=== PATIENT | female | born 1990 | race Caucasian/White ===

== ENCOUNTER 2019-01-28 09:44 | Inpatient (IN) | payer BC, OTHER ==
[~2019-01-28] VITALS: Ht 152.4 cm; Wt 90.0 kg
[~2019-01-28 09:44] MED LIST: IBUP-1222 PO; OXYC-302 PO
[2019-01-28] MEDS ORDERED: OXYTOCIN 30U/ 0.9% NaCL 500ML 500 ML IV ONE (10:11)
[2019-01-28] MEDS ORDERED: OXYTOCIN 30U/ 0.9% NaCL 500ML 500 ML ONE ×2 (10:16→20:43)
[2019-01-28] MEDS ORDERED: NEWBORN KIT ONE (10:16)
[2019-01-28] MEDS ORDERED: LIDOCAINE 1%, 20ML ONE (10:16)
[2019-01-28] MEDS ORDERED: MISOPROSTOL 200 MCG TABLET ONE (10:16)
[2019-01-28] MEDS: LACTATED RINGERS 1,000 ML IVBOLUS PRN ×3 (10:24→18:00)
[2019-01-28] MEDS ORDERED: FENTANYL PF 100 MCG/2ML IV PRN (10:30)
[2019-01-28] MEDS ORDERED: FENTANYL PF 100 MCG/2ML IVPush PRN (10:30)
[2019-01-28 10:32] VITALS: BP 125/79
[2019-01-28] MEDS ORDERED: FENTANYL/BUPIV./NS/PF 250 ML EPIDCONT SCH ×2 (10:40→11:50)
[2019-01-28] MEDS ORDERED: FENTANYL PF 500 MCG, BUPIVACAINE/PF 0.5%, 30ML 62.5 ML in SODIUM CHLORIDE 0.9% 177.5 ML EPIDCONT SCH (11:00)
[2019-01-28 11:18] LABS: BASOPHILS # (AUTO) 0.04 x10^3/uL (0-0.1); BASOPHILS % (AUTO) 0 % (0-1); EOSINOPHILS # (AUTO) 0.04 x10^3/uL (0-0.4); EOSINOPHILS % (AUTO) 0 % (1-7); LYMPHOCYTES # (AUTO) 2.12 x10^3/uL (1-3.4); LYMPHOCYTES % (AUTO) 17 % (22-44); MD NO; MEAN CORPUSCULAR HEMOGLOBIN 27.8 pg (27.0-34.8); MEAN CORPUSCULAR HGB CONC 32.6 g/dL (32.4-35.8); MEAN CORPUSCULAR VOLUME 85.3 fL (80-100); MEAN PLATELET VOLUME 9.9 fL (7.4-10.4); MONOCYTES # (AUTO) 0.65 x10^3/uL (0.2-0.8); MONOCYTES % (AUTO) 5 % (2-9); NEUTROPHILS # (AUTO) 9.51 x10^3/uL (1.8-6.8); NEUTROPHILS % (AUTO) 77 % (42-75); PLATELET COUNT 234 x10^3/uL (130-400); RED CELL DISTRIBUTION WIDTH 14.7 % (9.6-15.2)
[2019-01-28] MEDS ORDERED: BUPIVACAINE 0.25% ONE (11:26)
[2019-01-28] MEDS ORDERED: LIDOCAINE/PF 1.5%-EPI 1:200K, 30ML ONE (11:28)
[2019-01-28 11:29] LABS: AMPHETAMINE SCREEN, URINE Negative (Negative); BARBITURATE SCREEN, URINE Negative (Negative); BENZODIAZEPINE SCREEN, URINE Negative (Negative); CANNABINOID SCREEN, URINE Positive (Negative); COCAINE SCREEN, URINE Negative (Negative); METHADONE SCREEN, URINE Negative (Negative); OPIATE SCREEN, URINE Negative (Negative)
[2019-01-28] MEDS: LACTATED RINGERS 1,000 ML IV SCH ×4 (11:50→19:50)
[2019-01-28] MEDS ORDERED: ONDANSETRON 2MG/ML, 2ML IVPush PRN (12:00)
[2019-01-28] MEDS ORDERED: DIPHENHYDRAMINE 50 MG/ML, 1ML IVPush PRN (12:00)
[2019-01-28] MEDS ORDERED: EPHEDRINE 50 MG/ML, 1ML IVPush PRN (12:00)
[2019-01-28] MEDS ORDERED: NALOXONE 0.4 MG/ML, 1ML IVPush PRN (12:00)
[2019-01-28] MEDS: IBUPROFEN 600 MG TABLET PO PRN (20:40)
[2019-01-28] MEDS: OXYTOCIN 30U/ 0.9% NaCL 500ML 500 ML IV SCH (20:40)
[2019-01-28] MEDS ORDERED: IBUPROFEN 600 MG TABLET ONE (20:47)
[2019-01-28] MEDS ORDERED: ACETAMINOPHEN 325 MG TABLET PO PRN (21:00)
[2019-01-28] MEDS ORDERED: MISOPROSTOL 200 MCG TABLET PR PRN (21:00)
[2019-01-28] MEDS ORDERED: METHYLERGONOVINE 0.2 MG/ML IM PRN (21:00)
[2019-01-28] MEDS ORDERED: OXYcodone/APAP 5/325MG TABLET PO PRN (21:00)
[2019-01-28] MEDS ORDERED: ONDANSETRON 2MG/ML, 2ML IV PRN (21:00)
[2019-01-28 22:30] VITALS: BP 115/73
[2019-01-29 04:00] VITALS: BP 134/87
[2019-01-29] MEDS: IBUPROFEN 600 MG TABLET PO PRN ×3 (04:13→20:34)
[2019-01-29 06:23] LABS: MEAN CORPUSCULAR HEMOGLOBIN 27.8 pg (27.0-34.8); MEAN CORPUSCULAR HGB CONC 32.4 g/dL (32.4-35.8); MEAN CORPUSCULAR VOLUME 85.7 fL (80-100); PLATELET COUNT 213 x10^3/uL (130-400); RED BLOOD COUNT 3.08 x10^6/uL (3.82-5.3); RED CELL DISTRIBUTION WIDTH 14.9 % (9.6-15.2)
[2019-01-29 06:42] LABS: MD YES
[2019-01-29 06:44] LABS: BANDS%(MANUAL) 6 % (0-7); EOS% (MANUAL) 1 % (1-7); LYMPHS% (MANUAL) 8 % (22-44); MONOS% (MANUAL) 5 % (2-9); SEGS% (MANUAL) 80 % (42-75)
[2019-01-29] MEDS: OXYTOCIN 30U/ 0.9% NaCL 500ML 500 ML IV SCH ×2 (06:46→16:53)
[2019-01-29 06:49] LABS: POLYCHROMASIA 1+
[2019-01-29 06:50] LABS: <PLATELET ESTIMATE> ADEQUATE; <PLT MORPHOLOGY> NORMAL PLT MORPH
[2019-01-29 07:40] VITALS: BP 104/72
[2019-01-29] MEDS: DOCUSATE 100 MG CAPSULE PO PRN ×2 (08:02→20:34)
[2019-01-29] MEDS: PRENATAL VIT/IRON/FA 1 EACH TABLET PO SCH (08:02)
[2019-01-29] MEDS: OXYcodone/APAP 5/325MG TABLET PO PRN (08:05)
[2019-01-29 11:59] VITALS: BP 104/70
[2019-01-29 20:00] VITALS: BP 111/73
[2019-01-29] MEDS ORDERED: MEASLES,MUMPS&RUBELLA VACC/PF 0.5 ML SQ-VACC ONE (21:00)
[2019-01-30] MEDS: OXYcodone/APAP 5/325MG TABLET PO PRN (00:57)
[2019-01-30] MEDS: OXYTOCIN 30U/ 0.9% NaCL 500ML 500 ML IV SCH (02:53)
[2019-01-30] MEDS: PRENATAL VIT/IRON/FA 1 EACH TABLET PO SCH (07:32)
[2019-01-30] MEDS: IBUPROFEN 600 MG TABLET PO PRN (07:32)
[2019-01-30] MEDS: DOCUSATE 100 MG CAPSULE PO PRN (07:32)
[2019-01-30 07:59] VITALS: BP 103/70
[2019-01-30] MEDS ORDERED: FERROUS GLUCONATE 324 MG TABLET PO SCH (08:00)
[2019-01-30] MEDS ORDERED: IBUP-1222 PO (08:27)
[2019-01-30] MEDS ORDERED: FERR324T18 PO (08:30)
[2019-01-30] MEDS ORDERED: DOCU-131 PO (08:33)
[2019-01-30] MEDS ORDERED: LIDOCAINE-MPF 1%, 2ML INFIL ONE (09:00)
== END 2019-01-30 12:20 | disposition home or self-care (01) | DRG 806 ==
LOC: LDOP 09:44 → LDIP 10:11 → 2NW 22:31
PROVIDERS: ADMIT Obstetrics & Gynecology; ATTEND Obstetrics & Gynecology
PROC: 10E0XZZ Delivery of Products of Conception, External Approach (ICD-10-PCS; principal; 2019-01-28)
PROC: 0KQM0ZZ Repair Perineum Muscle, Open Approach (ICD-10-PCS; 2019-01-28)
PROC: 10H07YZ Insertion of Other Device into Products of Conception, Via Natural or Artificial Opening (ICD-10-PCS; 2019-01-28)
PROC: 3E0R3BZ Introduction of Anesthetic Agent into Spinal Canal, Percutaneous Approach (ICD-10-PCS; 2019-01-28)
PROC: 00HU33Z Insertion of Infusion Device into Spinal Canal, Percutaneous Approach (ICD-10-PCS; 2019-01-28)
PROC: 0UQMXZZ Repair Vulva, External Approach (ICD-10-PCS; 2019-01-28)
DX: O76 Abnormality in fetal heart rate and rhythm complicating labor and delivery (principal); O99.324 Drug use complicating childbirth; Z37.0 Single live birth; D62 Acute posthemorrhagic anemia; O34.219 Maternal care for unspecified type scar from previous cesarean delivery; F32.9 Major depressive disorder, single episode, unspecified; O99.344 Other mental disorders complicating childbirth; F12.90 Cannabis use, unspecified, uncomplicated; O70.1 Second degree perineal laceration during delivery; Z3A.40 40 weeks gestation of pregnancy; O99.03 Anemia complicating the puerperium
CPT/HCPCS: 36415; J3490; S0020; 80307; 85025; 86850; 86900; G0378; J3010; J2590; J7050; J7120

== ENCOUNTER 2019-02-04 17:41 | Emergency (ER) | payer OTHER ==
[~2019-02-04] VITALS: Ht 152.4 cm; Wt 81.1 kg
[~2019-02-04 17:41] MED LIST changes: +DOCU-131 PO; +FERR324T18 PO
[2019-02-04] MEDS ORDERED: ACETAMINOPHEN 500 MG TABLET ONE (18:44)
[2019-02-04] MEDS ORDERED: SODIUM CHLORIDE FLUSH 10ML SYR IVF ONE (19:00)
[2019-02-04] MEDS ORDERED: ACETAMINOPHEN 500 MG TABLET PO ONE ×2 (19:00)
--- NOTE | 2019-02-04 19:18 | NUR ---
PT IN ROOM IN GOWN. VERBAL ORDER FOR TYLENOL RECIEVED AND COMPLETED. EDTA TO START IV AND GET BLOOD CULTURE/ LABS. PT TOLERATING PO FLUIDS FOR MEDICATIONS. AWAITING FURTHER ORDERS.
[2019-02-04 19:38] LABS: MEAN CORPUSCULAR HEMOGLOBIN 27.2 pg (27.0-34.8); MEAN CORPUSCULAR HGB CONC 32.1 g/dL (32.4-35.8); MEAN CORPUSCULAR VOLUME 84.6 fL (80-100); MEAN PLATELET VOLUME 8.4 fL (7.4-10.4); PLATELET COUNT 340 x10^3/uL (130-400); RED CELL DISTRIBUTION WIDTH 15.6 % (9.6-15.2)
[2019-02-04 19:40] LABS: ALANINE AMINOTRANSFERASE 25 U/L (12-78); ALBUMIN 2.4 g/dL (3.4-5.0); ANION GAP 9 mmol/L (5-15); CALCIUM 8.2 mg/dL (8.5-10.1); CHLORIDE 109 mmol/L (98-107); CREATININE 0.57 mg/dL (0.55-1.02)
[2019-02-04 19:42] LABS: ALKALINE PHOSPHATASE 124 U/L (45-117); BILIRUBIN,TOTAL 0.5 mg/dL (0.2-1.0)
[2019-02-04 20:08] LABS: MD YES
[2019-02-04 20:13] LABS: BAND#(MANUAL) 1.18 x10^3/uL; BANDS%(MANUAL) 8 % (0-7); LYMPH#(MANUAL) 0.74 x10^3/uL (1-3.4); LYMPHS% (MANUAL) 5 % (22-44); MONOS#(MANUAL) 0.74 x10^3/uL (0.3-2.7); MONOS% (MANUAL) 5 % (2-9); SEG#(MANUAL) 12.05 x10^3/uL (1.8-6.8); SEGS% (MANUAL) 82 % (42-75)
[2019-02-04 20:14] LABS: <PLATELET ESTIMATE> ADEQUATE; <PLT MORPHOLOGY> NORMAL PLT MORPH; ANISOCYTOSIS 1+; POLYCHROMASIA 1+
[2019-02-04 20:24] LABS: CULTURE INDICATED? YES; MICROSCOPIC INDICATED
--- NOTE | 2019-02-04 20:37 | NUR ---
PT BACK FROM CT. PT STATES SHE IS FEELING BETTER AT THIS TIME.
[2019-02-04] MEDS ORDERED: OMNIPAQUE 350 MG/ML, 100ML BOTTLE ONE (20:38)
[2019-02-04] MEDS ORDERED: CEFTRIAXONE PMX 1GM/50ML 50 ML ONE (21:12)
--- NOTE | 2019-02-04 21:29 | NUR ---
ASSUMED CARE OF PATIENT. REPORT GIVEN FROM STEWART BUCHANAN
[2019-02-04] MEDS ORDERED: CEFTRIAXONE PMX 1GM/50ML 50 ML IVPB ONE (21:30)
--- NOTE | 2019-02-04 21:40 | NUR ---
DR FERRARO HAS UPDATED PATIENT
[2019-02-04 21:50] VITALS: BP 105/60
== END 2019-02-04 21:54 | disposition home or self-care (01) ==
LOC: ED 20:38
DX: N30.00 Acute cystitis without hematuria (principal); R50.9 Fever, unspecified; R00.0 Tachycardia, unspecified
CPT/HCPCS: 36415; 74177; 80053; 81001; 83605; 85025; 87040; 87086; 96365; 99284; J0696; Q9967; 87077

== ENCOUNTER 2019-02-06 11:00 | Emergency (ER) | payer OTHER ==
[~2019-02-06] VITALS: Ht 152.4 cm; Wt 80.0 kg
[2019-02-06] MEDS ORDERED: CEFTRIAXONE PMX 1GM/50ML 50 ML IVPB ONE (11:30)
[2019-02-06] MEDS ORDERED: CEFTRIAXONE PMX 1GM/50ML 50 ML ONE (11:50)
[2019-02-06 12:44] LABS: CULTURE INDICATED? YES; MICROSCOPIC INDICATED
--- NOTE | 2019-02-06 12:50 | NUR ---
ZACKARY RN: AWAITING UA RESULTS AT THIS TIME AND RECHECK FOR DC.
[2019-02-06 13:20] VITALS: BP 122/84
--- NOTE | 2019-02-06 13:24 | NUR ---
Patient/Caregiver given discharge instructions and they have confirmed that they understand the instructions. Patient ambulatory with steady gait.
== END 2019-02-06 13:24 | disposition home or self-care (01) ==
LOC: ED 11:25
DX: R78.81 Bacteremia (principal); N39.0 Urinary tract infection, site not specified
CPT/HCPCS: 36415; 81001; 87040; 87086; 96365; 99283; J0696

== ENCOUNTER 2019-02-08 23:01 | Inpatient (IN) | payer OTHER ==
[~2019-02-08] VITALS: Ht 152.4 cm; Wt 93.0 kg
[2019-02-08] MEDS ORDERED: VANCOMYCIN 1,600 MG in SODIUM CHLORIDE 0.9% 250 ML IV ONE (23:45)
[2019-02-09] MEDS ORDERED: SODIUM CHLORIDE 0.9% 1,000ML IVBOLUS ONE ×2
[2019-02-09] MEDS ORDERED: PIPERACILLIN/TAZO/PMX 4.5GM 100 ML IVPB ONE
[2019-02-09] MEDS ORDERED: VANCOMYCIN PER PHARMACY MC ONE
[2019-02-09 00:08] LABS: ALBUMIN 2.6 g/dL (3.4-5.0); ANION GAP 10 mmol/L (5-15); CALCIUM 8.6 mg/dL (8.5-10.1); CHLORIDE 108 mmol/L (98-107); CREATININE 0.86 mg/dL (0.55-1.02)
[2019-02-09 00:12] LABS: TROPONIN I < 0.015 ng/mL (0.000-0.045)
[2019-02-09 00:13] LABS: BASOPHILS # (AUTO) 0.01 x10^3/uL (0-0.1); BASOPHILS % (AUTO) 0 % (0-1); EOSINOPHILS # (AUTO) 0.02 x10^3/uL (0-0.4); EOSINOPHILS % (AUTO) 0 % (1-7); LYMPHOCYTES % (AUTO) 20 % (22-44); MD NO; MEAN CORPUSCULAR HEMOGLOBIN 26.4 pg (27.0-34.8); MEAN CORPUSCULAR HGB CONC 31.3 g/dL (32.4-35.8); MEAN CORPUSCULAR VOLUME 84.3 fL (80-100); MEAN PLATELET VOLUME 7.9 fL (7.4-10.4); MONOCYTES % (AUTO) 0 % (2-9); NEUTROPHILS # (AUTO) 3.57 x10^3/uL (1.8-6.8); NEUTROPHILS % (AUTO) 79 % (42-75); PLATELET COUNT 406 x10^3/uL (130-400); RED BLOOD COUNT 4.06 x10^6/uL (3.82-5.3); RED CELL DISTRIBUTION WIDTH 16.3 % (9.6-15.2)
--- NOTE | 2019-02-09 00:13 | NUR ---
FIRST SET OF BLOOD CULTURES DRAWN WITH IV START. 2ND SET DRAWN BY LAB.
--- NOTE | 2019-02-09 00:18 | NUR ---
CALLED PHARMACY TO ENSURE ORDERED ABX ARE SAFE FOR MOTHER. PER PHARMISIST THEY ARE BOTH PRESENT IN BREAST MILK BUT SAFE FOR MOTHERS. MOTHER WILL NEED TO OBSERVE CHILD FOR GI SYMPTOMS SUCH DIARRHEA.
[2019-02-09 00:29] LABS: ALANINE AMINOTRANSFERASE 19 U/L (12-78)
--- NOTE | 2019-02-09 00:29 | NUR ---
PT. OUT OF ROOM FOR CT.
[2019-02-09 00:31] LABS: ALKALINE PHOSPHATASE 126 U/L (45-117); BILIRUBIN,TOTAL 0.2 mg/dL (0.2-1.0); TOTAL PROTEIN 6.9 g/dL (6.4-8.2)
[2019-02-09] MEDS ORDERED: OMNIPAQUE 350 MG/ML, 100ML BOTTLE ONE (00:36)
[2019-02-09] MEDS ORDERED: ACETAMINOPHEN 500 MG TABLET ONE ×2 (00:47)
--- NOTE | 2019-02-09 00:51 | NUR ---
TASK RN: AYDEN HINOJOSA. ABX INITIATED PER EMAR. BC X2 DRAWN PRIOR TO ADMIN. PT FEBRILE. ERP AWARE. VERBAL ORDER FOR 1G TYLENOL RECEIVED AND PT MEDICATED.
--- NOTE | 2019-02-09 01:07 | NUR ---
RECEIVED REPORT BACK FORM NATASHA ELY RN.
--- NOTE | 2019-02-09 01:14 | NUR ---
PT. RESTING ON GURNEY WITH NADN. BABY. PT. AWARE OF NEED FOR URINE SAMPLE AND NEED TO REMOVE PANTS. SHE REPORTS SHE CAN DO THIS AFTER FINISHED BABY.
--- NOTE | 2019-02-09 01:41 | NUR ---
PT. AMBULATED TO BR TO PROVIDE CLEAN CATCH UA.
[2019-02-09 01:55] LABS: MICROSCOPIC AUTO
[2019-02-09 01:56] LABS: CULTURE INDICATED? YES
--- NOTE | 2019-02-09 02:18 | NUR ---
VS UPDATED. PT. AWAITING PROVIDER RECHECK. IVF AND IV ABX CONTIUE TO INFUSE PER ORDER.
--- NOTE | 2019-02-09 02:42 | NUR ---
DR. ZARATE AT BS FOR PELVIC EXAM.
[2019-02-09 02:59] LABS: WET PREP WBCS MANY (FEW)
[2019-02-09 03:01] LABS: CLUE CELLS NONE SEEN (NONE SEEN)
--- NOTE | 2019-02-09 03:18 | NUR ---
DR. CARMICHAEL AT BS TO EVAL PT. AT THIS TIME. VS UPDATED. IVF AND IV ABX COMPLETED AT THIS TIME. PT. WITH NADN. PT. CARING FOR CHILD(CHANGING DIAPER AND BREAST FEEDING). ALL MONITORS REMAIN IN PLACE. CALL LIGHT IN REACH. ALL SAFETY MEASURES OBSERVED.
--- NOTE | 2019-02-09 03:34 | NUR ---
THIS RN AT BS WITH CAR DROPPER FOR PELVIC EXAM. PT. DENIES NEEDS. POC DISCUSSED.
--- NOTE | 2019-02-09 04:09 | NUR ---
FIRST ATTEMPT TO CALL REPORT TO FLOOR.
--- NOTE | 2019-02-09 04:10 | NUR ---
UNABLE TO CALL REPORT TO FLOOR AND SUP IS AT BED MEETING.
--- NOTE | 2019-02-09 04:21 | NUR ---
2ND ATTEMPT TO CALL REPORT TO FLOOR.
--- NOTE | 2019-02-09 04:26 | NUR ---
REPORT TO STEWART HARDY. FLOOR READY FOR PT. TRANSPORT.
[2019-02-09 05:00] VITALS: BP 101/68
[2019-02-09 07:26] VITALS: BP 97/60
[2019-02-09] MEDS ORDERED: IBUPROFEN 800 MG TABLET PO PRN (12:30)
[2019-02-09] MEDS ORDERED: PHARMACOKINETIC MONITORING MC PRN (12:30)
[2019-02-09] MEDS: ACETAMINOPHEN 325 MG TABLET PO PRN (12:44)
[2019-02-09] MEDS: PIPERACILLIN/TAZO/PMX 3.375GM 50 ML IV SCH ×2 (12:45→18:05)
[2019-02-09] MEDS: LACTATED RINGERS 1,000 ML IV SCH (12:46)
[2019-02-09] MEDS: VANCOMYCIN 1,400 MG in SODIUM CHLORIDE 0.9% 250 ML IV SCH (13:32)
[2019-02-09 14:05] LABS: MICROSCOPIC AUTO
[2019-02-09 14:08] LABS: CULTURE INDICATED? YES
[2019-02-09] MEDS ORDERED: VANCOMYCIN PER PHARMACY MC PRN (15:00)
[2019-02-09 15:12] VITALS: BP 94/64
[2019-02-09 19:15] VITALS: BP 101/61
[2019-02-10] MEDS: VANCOMYCIN 1,400 MG in SODIUM CHLORIDE 0.9% 250 ML IV SCH ×2 (01:06→13:59)
[2019-02-10 01:45] VITALS: BP 95/57
[2019-02-10] MEDS: PIPERACILLIN/TAZO/PMX 3.375GM 50 ML IV SCH ×4 (06:14→18:21)
[2019-02-10 07:50] VITALS: BP 104/69
[2019-02-10] MEDS: LACTATED RINGERS 1,000 ML IV SCH ×3 (08:10→14:00)
[2019-02-10 08:34] LABS: MEAN CORPUSCULAR HEMOGLOBIN 26.8 pg (27.0-34.8); MEAN CORPUSCULAR HGB CONC 32.1 g/dL (32.4-35.8); MEAN CORPUSCULAR VOLUME 83.4 fL (80-100); MEAN PLATELET VOLUME 7.9 fL (7.4-10.4); PLATELET COUNT 323 x10^3/uL (130-400); RED BLOOD COUNT 3.18 x10^6/uL (3.82-5.3); RED CELL DISTRIBUTION WIDTH 16.2 % (9.6-15.2)
[2019-02-10 09:22] LABS: ALANINE AMINOTRANSFERASE 16 U/L (12-78); ANION GAP 8 mmol/L (5-15); CALCIUM 8.2 mg/dL (8.5-10.1); CHLORIDE 114 mmol/L (98-107); CREATININE 0.73 mg/dL (0.55-1.02)
[2019-02-10 09:25] LABS: ALKALINE PHOSPHATASE 85 U/L (45-117); BILIRUBIN,TOTAL 0.2 mg/dL (0.2-1.0); TOTAL PROTEIN 5.5 g/dL (6.4-8.2)
[2019-02-10 09:49] LABS: BASOPHILS % (AUTO) 0 % (0-1); EOSINOPHILS # (AUTO) 0.12 x10^3/uL (0-0.4); EOSINOPHILS % (AUTO) 1 % (1-7); LYMPHOCYTES # (AUTO) 1.09 x10^3/uL (1-3.4); LYMPHOCYTES % (AUTO) 11 % (22-44); MD NO; MONOCYTES % (AUTO) 4 % (2-9); NEUTROPHILS # (AUTO) 8.28 x10^3/uL (1.8-6.8); NEUTROPHILS % (AUTO) 84 % (42-75)
[2019-02-10 12:56] VITALS: BP 117/75
[2019-02-10 20:31] VITALS: BP 130/88
[2019-02-11] MEDS: PIPERACILLIN/TAZO/PMX 3.375GM 50 ML IV SCH ×4 (00:42→18:29)
[2019-02-11] MEDS: VANCOMYCIN 1,400 MG in SODIUM CHLORIDE 0.9% 250 ML IV SCH (02:09)
[2019-02-11 03:00] VITALS: BP 119/72
[2019-02-11 06:11] LABS: BASOPHILS # (AUTO) 0.02 x10^3/uL (0-0.1); BASOPHILS % (AUTO) 0 % (0-1); EOSINOPHILS # (AUTO) 0.08 x10^3/uL (0-0.4); EOSINOPHILS % (AUTO) 1 % (1-7); LYMPHOCYTES # (AUTO) 2.35 x10^3/uL (1-3.4); LYMPHOCYTES % (AUTO) 25 % (22-44); MD NO; MEAN CORPUSCULAR HGB CONC 31.2 g/dL (32.4-35.8); MEAN CORPUSCULAR VOLUME 83.4 fL (80-100); MEAN PLATELET VOLUME 8.4 fL (7.4-10.4); MONOCYTES # (AUTO) 0.71 x10^3/uL (0.2-0.8); MONOCYTES % (AUTO) 8 % (2-9); NEUTROPHILS # (AUTO) 6.21 x10^3/uL (1.8-6.8); NEUTROPHILS % (AUTO) 66 % (42-75); PLATELET COUNT 398 x10^3/uL (130-400); RED BLOOD COUNT 3.21 x10^6/uL (3.82-5.3)
[2019-02-11 06:18] LABS: ALBUMIN 2.2 g/dL (3.4-5.0); ANION GAP 8 mmol/L (5-15); CHLORIDE 111 mmol/L (98-107)
[2019-02-11 06:22] LABS: ALANINE AMINOTRANSFERASE 16 U/L (12-78); ALKALINE PHOSPHATASE 79 U/L (45-117); BILIRUBIN,TOTAL 0.5 mg/dL (0.2-1.0); CREATININE 1.24 mg/dL (0.55-1.02); TOTAL PROTEIN 5.6 g/dL (6.4-8.2)
[2019-02-11] MEDS: LACTATED RINGERS 1,000 ML IV SCH ×4 (07:35→23:31)
[2019-02-11 08:00] VITALS: BP 124/85
[2019-02-11] MEDS: ACETAMINOPHEN 325 MG TABLET PO PRN (08:23)
[2019-02-11 15:00] VITALS: BP 120/80
[2019-02-11 19:54] VITALS: BP 136/90
[2019-02-11] MEDS ORDERED: VANCOMYCIN 1,400 MG in SODIUM CHLORIDE 0.9% 250 ML IV SCH (21:00)
[2019-02-12 01:14] VITALS: BP 128/87
[2019-02-12] MEDS: PIPERACILLIN/TAZO/PMX 3.375GM 50 ML IV SCH ×3 (01:29→12:51)
[2019-02-12] MEDS: LACTATED RINGERS 1,000 ML IV SCH ×2 (04:30→12:30)
[2019-02-12 05:43] LABS: BASOPHILS # (AUTO) 0.03 x10^3/uL (0-0.1); BASOPHILS % (AUTO) 0 % (0-1); EOSINOPHILS # (AUTO) 0.11 x10^3/uL (0-0.4); EOSINOPHILS % (AUTO) 1 % (1-7); LYMPHOCYTES # (AUTO) 2.88 x10^3/uL (1-3.4); LYMPHOCYTES % (AUTO) 33 % (22-44); MD NO; MEAN CORPUSCULAR HEMOGLOBIN 26.8 pg (27.0-34.8); MEAN CORPUSCULAR HGB CONC 31.6 g/dL (32.4-35.8); MEAN CORPUSCULAR VOLUME 84.6 fL (80-100); MEAN PLATELET VOLUME 8.4 fL (7.4-10.4); MONOCYTES # (AUTO) 0.55 x10^3/uL (0.2-0.8); MONOCYTES % (AUTO) 6 % (2-9); NEUTROPHILS % (AUTO) 60 % (42-75); PLATELET COUNT 399 x10^3/uL (130-400); RED BLOOD COUNT 3.17 x10^6/uL (3.82-5.3); RED CELL DISTRIBUTION WIDTH 16.8 % (9.6-15.2)
[2019-02-12 05:56] LABS: ALANINE AMINOTRANSFERASE 12 U/L (12-78); ALBUMIN 2.2 g/dL (3.4-5.0); ANION GAP 11 mmol/L (5-15); CALCIUM 8.1 mg/dL (8.5-10.1); CHLORIDE 107 mmol/L (98-107); CREATININE 1.28 mg/dL (0.55-1.02)
[2019-02-12 05:58] LABS: ALKALINE PHOSPHATASE 70 U/L (45-117); BILIRUBIN,TOTAL 0.2 mg/dL (0.2-1.0); TOTAL PROTEIN 5.6 g/dL (6.4-8.2)
[2019-02-12 08:25] VITALS: BP 139/89
[2019-02-12 13:32] VITALS: BP 125/84
[2019-02-12] MEDS ORDERED: AMOX1TAB64 PO (14:41)
== END 2019-02-12 14:54 | disposition home or self-care (01) | DRG 776 ==
LOC: ED 23:37 → EDIP 02-09 03:39 → 4NOR 02-09 05:02 → DCLOUNGE 02-12 14:40
PROVIDERS: ADMIT Obstetrics & Gynecology; ATTEND Obstetrics & Gynecology
DX: O85 Puerperal sepsis (principal); O90.81 Anemia of the puerperium; D64.9 Anemia, unspecified
CPT/HCPCS: 36415; 71045; 74177; 80048; 80053; 80202; 81001; 82040; 83605; 83690; 83880; 84484; 85025; 87040; 87086; 87210; 87491; 87591; 87808; 93005; 96361; 96365; 96366; 96367; G0378; J2543; J3370; Q9967; J7030; J7050; J7120